=== PATIENT | male | born 1975 | race Caucasian/White ===

== ENCOUNTER 2018-04-09 18:37 | Emergency (ER) | payer SELFPAY | END 2018-04-09 19:59 | disposition E | LOC: ER 18:37 → MERGE 18:37 → EDBD 18:37 → ER 19:59 | DX: S11.80XA Unspecified open wound of other specified part of neck, initial encounter (principal); Y93.89 Activity, other specified; Y99.8 Other external cause status; Y92.89 Other specified places as the place of occurrence of the external cause ==